=== PATIENT | female | born 1980 | race Caucasian/White ===

== ENCOUNTER 2016-12-09 01:02 | Emergency (ER) | payer MEDICAID ==
[~2016-12-09] VITALS: Ht 152.4 cm; Wt 104.5 kg
[~2016-12-09 01:02] MED LIST: ALAVERT10 MG OR; ANAPROX DS550 MG OR; APAP/HYDRO325 MG/10 OR; BACTRIM DS1 TAB PO; CIPRO500 MG OR; FLEXERIL OR; FLEXERIL5 MG OR; LORTAB 10 PO; LORTAB 5 OR; MELOXICAM7.5 MG OR; METHADONE40 MG OR; METHADONE40 MG PO; NAPROSYN500 MG OR; NO HOME MEDS; ULTRAM50 MG OR; VALIUM5 MG OR; VICOPROFEN OR
[2016-12-09] MEDS ORDERED: METHADONE HCL10 MG PO (01:14)
[2016-12-09 01:42] LABS: HEMOGLOBIN 12.1 g/dl (12.0-16.0); IMMATURE GRANULOCYTES 0.3 % (0.0-1.0); MEAN CELL VOLUME 86.4 fL CALC (80.0-100.0); MEAN CORPUSCULAR HGB 28.3 pG CALC (26.0-32.0); MEAN CORPUSCULAR HGB CONC 32.7 g/L CALC (32.0-36.0); NEUT# 3.1 thou/uL (2.00-7.15); RED BLOOD COUNT 4.28 mill/uL (4.20-5.60); RED CELL DISTRI WIDTH 14.7 % (11.5-15.5)
[2016-12-09 01:48] LABS: URINE BILIRUBIN - DIPSTICK NEGATIVE (NEGATIVE); URINE BLOOD DIPSTICK NEGATIVE (NEGATIVE); URINE CLARITY SLIGHT CLOUDY; URINE COLOR YELLOW; URINE GLUCOSE - DIPSTICK NEGATIVE (NEGATIVE); URINE KETONE NEGATIVE (NEGATIVE); URINE LEUK ESTERASE NEGATIVE (NEGATIVE); URINE NITRITE - DIPSTICK NEGATIVE (Negative); URINE PH 7.5 (4.5-8.0); URINE PROTEIN - DIPSTICK NEGATIVE (NEG-TRACE); URINE UROBILINOGEN - DIPSTICK 0.2 E.U./dL (0.2)
[2016-12-09 02:01] LABS: ALBUMIN 3.6 g/dL (3.2-5.0); ALKALINE PHOSPHATASE 55 u/l (38-126); AMYLASE 38 u/l (30-110); ANION GAP 14 (6-22 (CALC)); BILIRUBIN, TOTAL 0.4 mg/dL (0.0-1.4); BUN 6 mg/dL (7-17); BUN/CREATININE RATIO 9 (12-20 (CALC)); CALCIUM 8.9 mg/dL (8.4-10.2); CARBON DIOXIDE 27 mmol/l (22-30); CHLORIDE 107 mmol/l (95-108); CREATININE 0.7 mg/dL (0.5-1.0); GFR > 60 ML/MIN (>=60 (CALC)); GFR FOR AFR.AMER. > 60 ML/MIN (>=60 (CALC)); GLUCOSE 100 mg/dL (65-105); LIPASE 45 u/l (23-300); POTASSIUM 3.7 mmol/l (3.5-5.1); SGOT/AST 21 u/l (14-36); SGPT/ALT 28 u/l (9-52); SODIUM 145 mmol/l (137-146); TOTAL PROTEIN 6.5 g/dL (6.3-8.2)
[2016-12-09] MEDS ORDERED: PREVACID30 M2 PO (03:09)
[2016-12-09] MEDS ORDERED: ZOFRAN ODT4 MG PO (03:09)
[2016-12-09 03:30] VITALS: BP 132/65
== END 2016-12-09 03:38 | disposition home or self-care (01) | DRG 446 ==
LOC: ED 01:02
PROVIDERS: Emergency Medicine
DX: K80.20 Calculus of gallbladder without cholecystitis without obstruction (principal); R11.0 Nausea; R10.13 Epigastric pain
CPT/HCPCS: Q9967